=== PATIENT | male | born 1970 | race Two or more races ===

== ENCOUNTER 2023-11-09 00:51 | Emergency (ER) | payer BC ==
[~2023-11-09] VITALS: Ht 170.2 cm; Wt 75.7 kg
[2023-11-09] MEDS: OXYMETAZOLINE HCL NASAL SPRAY 30 ML BOTTLE NS ONE (01:38)
[2023-11-09] MEDS ORDERED: TRANEXAMIC ACID 1,000 MG/10 ML VIAL ONE (01:40)
[2023-11-09] MEDS: TRANEXAMIC ACID 1,000 MG/10 ML VIAL NS ONE (01:47)
[2023-11-09 03:11] VITALS: BP 159/93; TEMP 98.1; O2SAT 100
== END 2023-11-09 03:13 | disposition home or self-care (01) ==
LOC: ER 00:54
DX: R04.0 Epistaxis (principal); Z60.2 Problems related to living alone